=== PATIENT | female | born 1990 | race American Indian/Alaskan Native ===

== ENCOUNTER 2020-02-01 23:40 | Inpatient (IN) | payer MEDICAID ==
[2020-02-02] MEDS ORDERED: MINERAL OIL 30 ML ORAL LIQD PO PRN (01:02)
[2020-02-02] MEDS ORDERED: LIDOCAINE (2%) 20 MG/1 ML VIAL 20 ML MDV INFILTRATI ONE ×2 (01:02→03:21)
[2020-02-02] MEDS ORDERED: BUTORPHANOL 2 MG/1 ML INJ IV PRN ×2 (01:02→01:38)
[2020-02-02] MEDS ORDERED: fentaNYL 100 MCG/2 ML INJ IV PRN (01:02)
[2020-02-02] MEDS ORDERED: TERBUTALINE 1 MG/1 ML INJ SUB-Q PRN (01:02)
[2020-02-02] MEDS ORDERED: ePHEDrine SULFATE 50 MG/1 ML INJ IV PRN ×2 (01:02→01:21)
[2020-02-02] MEDS ORDERED: NALOXONE 2 MG/2 ML INJ IV PRN (01:21)
[2020-02-02 01:26] LABS: Hematocrit 29.1 % (30.3-42.9); Hemoglobin 9.3 gm/dl (10.1-14.3); Mean Corpuscular HGB Conc 32 % (30-34); Mean Corpuscular Volume 74 fl (79-97); Platelet Count 332 K/mm3 (140-440); Red Blood Count 3.91 M/mm3 (3.65-5.03); Red Cell Distribution Width 16.8 % (13.2-15.2)
--- NOTE | 2020-02-02 01:28 | Anesthesia Consultation ---
Anesthesia Consult and Med Hx Date of service: 02/02/20 - Airway Anesthetic Teeth Evaluation: Good ROM Head & Neck: Adequate Mental/Hyoid Distance: Adequate Mallampati Class: Class II Intubation Access Assessment: Probably Good - Pulmonary Exam CTA: Yes - Cardiac Exam Cardiac Exam: RRR - Pre-Operative Health Status ASA Pre-Surgery Classification: ASA2 Proposed Anesthetic Plan: Epidural - Pulmonary Hx Asthma: No - Cardiovascular System Hx Hypertension: No - Central Nervous System Hx Seizures: No Hx Psychiatric Problems: No - Endocrine Hx Renal Disease: No Hx Hypothyroidism: No Hx Hyperthyroidism: No - Hematic Hx Anemia: Yes Hx Sickle Cell Disease: No - Other Systems Hx Alcohol Use: No
[2020-02-02] MEDS ORDERED: fentaNYL-BUPIV 2 MCG/ML-0.125% 200 MCG/100 ML BAG EPIDURAL SCH (02:00)
[2020-02-02] MEDS ORDERED: OXYTOCIN DRIP 30 UNITS/500 ML BAG IV SCH ×3 (02:00→04:00)
[2020-02-02] MEDS ORDERED: LACTATED RINGERS 1,000 ML IV SCH (02:00)
--- NOTE | 2020-02-02 03:08 | Progress Note ---
Labor Epidural - Labor Epidural Start Time: 02:53 Stop Time: 03:07 Performed by:: APURVA KNIGHT Procedure: Patient is requesting epidural for labor pain. H&P, and labs reviewed. Procedure explained, questions answered, consent obtained. Patient in sitting position with blood pressure cuff and pulse ox on and working. Timeout performed immediately before start of procedure. Sterile betadine prep/drape. 3 mL 1% lidocaine skin wheal at L[3]-L[4]. 18-gauge Touhy epidural needle advanced to [id number] with saline at [7] cm. Epidural dexmedetomidine [30] mcg administered. Epidural catheter advanced to [12] cm, negative aspiration for blood and csf, negative test dose 3 ml 1.5% lidocaine with epinephrine. Sterile steri-strips and tegaderm applied, followed by tape reinforcement. Patient tolerated procedure well. Tommy SUAREZ
[2020-02-02] MEDS ORDERED: miSOPROStol 200 MCG TAB ONE (03:50)
[2020-02-02] MEDS ORDERED: ONDANSETRON 4 MG/2 ML INJ IV PRN (03:53)
[2020-02-02] MEDS ORDERED: ACETAMINOPHEN 325 MG TAB PO PRN (03:53)
[2020-02-02] MEDS ORDERED: MAGNESIUM HYDROXIDE (MOM) ORAL LIQD UDC PO PRN (03:53)
[2020-02-02] MEDS ORDERED: PROMETHAZINE 25 MG RECT SUPP PR PRN (03:53)
[2020-02-02] MEDS ORDERED: LANOLIN/ZINC/DIMETHICONE (LANSINOH) 7 GM TP PRN (03:53)
[2020-02-02] MEDS ORDERED: WITCH HAZEL/ GLYCERIN PAD TP PRN (03:53)
[2020-02-02] MEDS ORDERED: oxyCODONE /ACETAMINOPHEN 5-325MG TAB PO PRN (03:53)
[2020-02-02] MEDS ORDERED: PROMETHAZINE 25 MG TAB PO PRN (03:53)
[2020-02-02] MEDS ORDERED: diphenhydrAMINE 25 MG CAP PO PRN (03:53)
--- NOTE | 2020-02-02 03:59 | History and Physical Report ---
History of Present Illness Date of examination: 02/02/20 Date of admission: 02/01/20 23:54 Chief complaint: contractions History of present illness: 29-year-old G3, P2 at 39 weeks 5 days without outside facility care c/b Class II Obesity presenting with contractions. During triage assessment, had rupture membranes with clear fluid. Patient was admitted for induction/augmentation of labor. Denies PIH symptoms. Past History Past Medical History: no pertinent history Past Surgical History: no surgical history Family/Genetic History: none Social history: no significant social history - Obstetrical History : 3 Para: 2 Hx # Term Pregnancies: 2 Number of Living Children: 2 Medications and Allergies Allergies Allergy/AdvReac Type Severity Reaction Status Date / Time Penicillins Allergy Unknown Verified 02/01/20 23:53 Home Medications Medication Instructions Recorded Confirmed Last Taken Type No Known Home Medications [No 02/02/20 02/02/20 Unknown History Reported Home Medications] Active Meds: Active Medications Butorphanol Tartrate (Stadol) 2 mg IV Q2H PRN PRN Reason: Pain, Moderate(4-6) LABOR PAIN Last Admin: 02/02/20 01:44 Dose: 2 mg Documented by: Ephedrine Sulfate (Ephedrine Sulfate) 10 mg IV Q2M PRN PRN Reason: Hypotension Fentanyl (Sublimaze) 100 mcg IV Q2H PRN PRN Reason: Pain,Severe (7-10) LABOR PAIN Oxytocin/Sodium Chloride (Pitocin/Ns 30 Unit/500ml) 30 units in 500 mls @ 2 mls/hr IV TITR [place]; Protocol Lactated Ringer's (Lactated Ringers) 1,000 mls @ 125 mls/hr IV DIRECT [place] Oxytocin/Sodium Chloride (Pitocin/Ns 30 Unit/500ml) 30 units in 500 mls @ 40 mls/hr IV TITR [place]; Protocol Fentanyl/Bupivacaine/Sodium Chlor (Fentanyl-Bupiv 2 Mcg/Ml-0.125%) 200 mcg in 100 mls @ 12 mls/hr EPIDURAL TITR [place]; Protocol Mineral Oil (Mineral Oil) 30 ml PO QHS PRN PRN Reason: Constipation Naloxone HCl (Naloxone) 0.2 mg IV Q5M PRN PRN Reason: Respiratory sedation Promethazine HCl (Phenergan) 25 mg [place] Q6H PRN PRN Reason: Nausea And Vomiting Terbutaline Sulfate (Brethine) 0.25 mg SUB-Q ONCE PRN PRN Reason: Hyperstimulation/Hypertonicity Review of Systems All systems: negative (expect HPI) - Vital Signs Vital signs: Vital Signs Temp Pulse Resp BP Pulse Ox 98.6 F 112 H 24 137/81 99 02/02/20 00:16 02/02/20 00:16 02/02/20 00:16 02/02/20 00:16 02/02/20 00:16 Temp Pulse Resp BP Pulse Ox 98.5 F 110 H 18 124/70 100 02/02/20 01:25 02/02/20 03:46 02/02/20 01:25 02/02/20 03:46 02/02/20 03:41 - Physical Exam Abdomen: Positive: normal appearance, normal bowel sounds - Obstetrical FHR: category 1 Uterine Contraction Monitor Mode: External Cervical Dilatation: 3 Cervical Effacement Percentage: 50 station: -2 Uterine Contraction Frequency (min): 5 Uterine Contraction Pattern: Regular Uterine Tone Measurement Phase: Contraction Uterine Contraction Intensity: Strong/Firm Results Result Diagrams: 02/02/20 01:02 Abnormal lab results 02/02/20 Range/Units 01:02 WBC 13.5 H (4.5-11.0) K/mm3 Hgb 9.3 L (10.1-14.3) gm/dl Hct 29.1 L (30.3-42.9) % MCV 74 L (79-97) fl MCH 24 L (28-32) pg RDW 16.8 H (13.2-15.2) % All other labs normal. Assessment and Plan - Patient Problems (1) Active labor Current Visit: Yes Status: Acute Plan to address problem: --Augmentation as indicated --New OB labs as [facility] --Ancef for GBS unknown given PCN allergy --Desires future fertility
--- NOTE | 2020-02-02 04:03 | Procedure Note ---
OB Delivery Note - Delivery Date of Delivery: 02/02/20 Surgeon: VIV MO Estimated blood loss: 300cc - Vaginal Delivery presentation: vertex Delivery position: OA Intrapartum events: none Delivery induction: none Delivery monitor: external FHT, external uterine Route of delivery: Delivery placenta: spontaneous Delivery cord: 3 umbilical vessels Episiotomy: none Delivery laceration: none Anesthesia: epidural Delivery comments: Spontaneous vaginal delivery at 03:41 of liveborn male infant weighing 6 lb. 1 oz. over intact perineum with apgars of 8/9. Delivery of baby was atraumatic; no nuchal cord. Baby placed skin to skin with mom immediately after delivery. Spontaneous cry and respirations. Baby bulb suctioned and dried with warm blanke ts. 3 vessel cord double clamped and cut (delayed cord clamping). Spontaneous delivery of intact placenta and membranes by benjamin mechanism. EBL 300 cc. Pitocin to IV fluids after delivery of placenta. Cytotec 800 mcg rectally given for uterine atony. Fundus firmed with massage. No lacerations noted. Vaginal sweep negative. Sponge count correct. Mother and baby stable.
[2020-02-02] MEDS ORDERED: miSOPROStol 200 MCG TAB PR ONE (04:04)
[2020-02-02 05:34] LABS: Amphetamine Screen,Urine PRESUMPTIVE NEGATIVE; Benzodiazepines Screen,Urine PRESUMPTIVE NEGATIVE; Cannabinoid Screen,Urine PRESUMPTIVE NEGATIVE; Cocaine Screen,Urine PRESUMPTIVE NEGATIVE; Methadone Screen,Urine PRESUMPTIVE NEGATIVE; Opiate Screen,Urine PRESUMPTIVE NEGATIVE
[2020-02-02] MEDS: IBUPROFEN 600 MG TAB PO SCH ×2 (08:08→17:04)
--- NOTE | 2020-02-02 15:15 | Event Note ---
Date: 02/02/20 Day of delivery: Patient is doing well. No complaints. VSS. Small amount of lochia.
[2020-02-02 19:59] LABS: Hematocrit 26.1 % (30.3-42.9); Hemoglobin 8.2 gm/dl (10.1-14.3)
--- NOTE | 2020-02-02 20:18 | Post Anesthesia Evaluation ---
- Post Anesthesia Evaluation Patient Participated: Yes Airway Patent: Yes Stable Respiratory Function: Yes Nausea/Vomiting: No Temp > 96.8F: Yes Pain Manageable: Yes Adequeate Hydration: Yes Anesthesia Complications: No Block Receding Appropriately: Yes
[2020-02-03] MEDS: IBUPROFEN 600 MG TAB PO SCH ×4 (02:08→22:29)
--- NOTE | 2020-02-03 13:47 | Progress Note ---
Assessment and Plan A: day 1 S/P . Anemia. P: Iron supplementation. Anticipate discharge home tomorrow if patient continues to do well. Subjective - Subjective Date of service: 02/03/20 Principal diagnosis: day 1 S/P Patient reports: appetite normal, voiding normally, pain well controlled, flatus, ambulating normally, no dizzy ambulation, no nauseated [place]: doing well Objective - Vital Signs Latest vital signs: Vital Signs Temp Pulse Resp BP BP Pulse Ox 02/03/20 07:50 97.2 F L 83 18 120/77 100 02/03/20 02:08 20 02/03/20 01:32 97.9 F 96 H 18 104/63 100 02/02/20 16:03 97.4 F L 89 18 116/74 99 Intake and Output 02/02/20 02/03/20 02/03/20 23:59 07:59 15:59 Intake Total 640 240 Output Total 101 Balance 539 240 Intake: Oral 300 Intake, Free Water 340 240 Output: Urine 100 Void 100 Stool 1 Other: Total, Intake Amount 300 Total, Output Amount 100 # Voids Void 2 2 - Exam Cardiovascular: Present: Regular rate, No murmurs Lungs: Present: Clear to auscultation Abdomen: Present: normal appearance, soft. Absent: distention, tenderness, guarding, rigidity Uterus: Present: normal, firm, fundal height below umbilicus. Absent: bogginess, tenderness Extremities: Present: normal. Absent: tenderness, edema - Labs Labs: Abnormal lab results 02/02/20 Range/Units 19:22 Hgb 8.2 L (10.1-14.3) gm/dl Hct 26.1 L (30.3-42.9) %
[2020-02-03] MEDS: FERROUS SULFATE 325 MG TAB PO SCH ×2 (14:04→22:29)
[2020-02-04] MEDS: IBUPROFEN 600 MG TAB PO SCH (04:35)
--- NOTE | 2020-02-04 07:26 | Progress Note ---
Assessment and Plan A: day 2 S/P . Anemia. P: Discharge patient home today. Discussed with patient discharge instructions and warning signs. Advised patient to continue taking vitamins and iron supplements at home. Advised patient to avoid intercourse, lifting, housework, driving. Advised patient to follow up with her [facility] doctor in 6 weeks. Patient voiced understanding of all instructions. Subjective - Subjective Date of service: 02/04/20 Principal diagnosis: day 2 S/P Interval history: Patient requests discharge today. Patient reports: appetite normal, voiding normally, pain well controlled, flatus, ambulating normally, no dizzy ambulation, no nauseated : doing well Objective - Vital Signs Latest vital signs: Vital Signs Temp Pulse Resp BP BP Pulse Ox 02/04/20 00:33 98.2 F 88 2 L 128/76 100 02/03/20 16:00 96.8 F L 80 17 131/81 99 02/03/20 07:50 97.2 F L 83 18 120/77 100 Intake and Output 02/03/20 02/03/20 02/04/20 15:59 23:59 07:59 Intake Total 240 Balance 240 Intake: Oral 240 Other: Total, Intake Amount 240 # Voids Void 1 - Exam Cardiovascular: Present: Regular rate, No murmurs Lungs: Present: Clear to auscultation Abdomen: Present: normal appearance, soft. Absent: distention, tenderness, guarding, rigidity Uterus: Present: normal, firm, fundal height below umbilicus. Absent: bogginess, tenderness Extremities: Present: normal. Absent: tenderness, edema
--- NOTE | 2020-02-04 07:28 | Discharge Summary ---
Providers - Providers Date of Admission: 02/01/20 23:54 Date of discharge: 02/04/20 Attending physician: ELA HATFIELD JR, MD Primary care physician: ELA HATFIELD JR, MD Hospitalization Reason for admission: active labor Delivery: Episiotomy: none Laceration: none Other procedures: none complications: none Discharge diagnosis: IUP at term delivered baby: male Pertinent studies: Labs Hospital course: Normal hospital course. Condition at discharge: Good Disposition: DC-01 TO HOME OR SELFCARE - Discharge Diagnoses (1) Term delivered Status: Acute (2) Anemia Status: Acute Plan - Provider Discharge Summary Activity: routine, no sex for 6 weeks, no heavy lifting 4 weeks, no strenuous ex ercise Diet: routine Instructions: routine Additional instructions: Continue taking your vitamins and iron supplements at home. Follow up with your OB doctor in 4-6 weeks. Call your doctor immediately for: * Fever > 100.5 * Heavy vaginal bleeding ( >1 pad per hour) * Severe persistent headache * Shortness of breath * Reddened, hot, painful area to leg or breast - Follow up plan Follow up: PRIMARY CARE, [Referring] - 6 Weeks Forms: [facility] Discharge Summary, Discharge Signature Page
[2020-02-04 09:37] VITALS: BP 109/69
== END 2020-02-04 11:00 | disposition home or self-care (01) | DRG 775 ==
LOC: TRG 23:40 → LD 23:54 → OBSVTOIN 23:54 → APU 02-02 00:15 → TRG 02-02 00:15 → APU 02-02 02:04 → OB 02-02 05:43
PROVIDERS: ADMIT Obstetrics & Gynecology; ATTEND Obstetrics & Gynecology
PROC: 10E0XZZ Delivery of Products of Conception, External Approach (ICD-10-PCS; principal; 2020-02-02)
PROC: 3E0R3BZ Introduction of Anesthetic Agent into Spinal Canal, Percutaneous Approach (ICD-10-PCS; 2020-02-02)
PROC: 00HU33Z Insertion of Infusion Device into Spinal Canal, Percutaneous Approach (ICD-10-PCS; 2020-02-02)
PROC: 3E0P7VZ Introduction of Hormone into Female Reproductive, Via Natural or Artificial Opening (ICD-10-PCS; 2020-02-02)
DX: O99.214 Obesity complicating childbirth (principal); Z37.0 Single live birth; Z3A.39 39 weeks gestation of pregnancy; E66.9 Obesity, unspecified; Z88.0 Allergy status to penicillin; O90.81 Anemia of the puerperium; D64.9 Anemia, unspecified; Z20.828 Contact with and (suspected) exposure to other viral communicable diseases
CPT/HCPCS: 36415; 59025; 80307; 85014; 85018; 85027; 86592; 86706; 86762; 86850; 86900; 86901; 87806; G0378; A6250; J0595; J0690; J2590; U0003

== ENCOUNTER 2021-10-08 18:53 | Emergency (ER) | payer MEDICAID ==
[2021-10-09] MEDS ORDERED: dexAMETHasone 4 MG/ML VIAL PO ONE (08:02)
[2021-10-09] MEDS ORDERED: ACETAMINOPHEN W/CODEINE 300-30 MG TAB PO ONE (08:02)
--- NOTE | 2021-10-09 08:46 | Emergency Department Report ---
ED Neuro Deficit HPI - General Chief Complaint: Neuro Symptoms/Deficit Stated Complaint: BODY NUMBNESS Time Seen by Provider: 10/09/21 07:15 Source: patient Mode of arrival: Ambulatory Limitations: No Limitations - History of Present Illness Initial Comments: 31-year-old black female with a past medical history of hypertension presents to the emergency department for evaluation of 2-week history of intermittent numbness to bilateral feet and hands. She states that sometimes she has severe pain to her feet that just comes out of nowhere along with the numbness and tingling that resolves on its on. She states that she has pain in her bilateral hands mostly in the thumb joints more persistently. She states that pain in hand and thumb is worse with palpation and some movements. She denies fever. -: Gradual, week(s) (2) Location: left arm, right arm, left leg, right leg Presenting Symptoms: Absent: Weak/Paralyzed One Side, Sudden, Severe Headache, Blurred/Loss of Vision, Facial Droop/Numbness, Unable to Speak Clearly, Altered Mental Status History of same: Yes Place: home Severity: moderate Quality: numb, tingling On Anticoagulants: No Context: gradual onset Associated Symptoms: denies: confusion, chest pain, cough, diaphoresis, fever/chills, headaches, loss of appetite, malise, nausea/vomiting, vertigo, seizures, shortness of breath, syncope, weakness - Related Data Home Medications: Previous Rx's Medication Instructions Recorded Last Taken Type Gabapentin 100 mg PO Q8HR 30 Days #90 capsule 10/09/21 Unknown Rx methylPREDNISolone [Medrol 4MG 4 mg PO DAILY #1 pack 10/09/21 Unknown Rx DOSEPAK (21 tabs)] Allergies/Adverse Reactions: Allergies Allergy/AdvReac Type Severity Reaction Status Date / Time Penicillins Allergy Unknown Verified 02/01/20 23:53 ED Review of Systems ROS: Stated complaint: BODY NUMBNESS Other details as noted in HPI Comment: All other systems reviewed and negative Constitutional: denies: chills, fever Eyes: denies: vision change ENT: denies: ear pain, hearing loss, congestion Respiratory: denies: cough, shortness of breath, SOB with exertion, SOB at rest, stridor, wheezing Cardiovascular: denies: chest pain, palpitations, dyspnea on exertion, orthopnea Gastrointestinal: denies: abdominal pain, nausea, vomiting, diarrhea, hematemesis, melena, hematochezia Genitourinary: denies: urgency, dysuria Musculoskeletal: denies: back pain Skin: denies: rash, lesions Neurological: numbness, paresthesias. denies: headache, weakness, confusion, abnormal gait, vertigo Psychiatric: denies: anxiety, depression Hematological/Lymphatic: denies: easy bleeding, easy bruising ED Past Medical Hx - Past Medical History Hx Hypertension: No Hx Congestive Heart Failure: No Hx Diabetes: No Hx Deep Vein Thrombosis: No Hx Renal Disease: No Hx Sickle Cell Disease: No Hx Seizures: No Hx Asthma: No Hx COPD: No Hx HIV: No - Social History Smoking Status: Never Smoker - Medications Home Medications: Home Medications Medication Instructions Recorded Confirmed Last Taken Type Gabapentin 100 mg PO Q8HR 30 Days #90 capsule 10/09/21 Unknown Rx methylPREDNISolone [Medrol 4MG 4 mg PO DAILY #1 pack 10/09/21 Unknown Rx DOSEPAK (21 tabs)] ED Neuro Physical Exam - General Limitations: No Limitations General appearance: alert, in no apparent distress Suspected Stroke: No - Head Head exam: Present: atraumatic, normocephalic - Eye Eye exam: Present: normal appearance, PERRL. Absent: conjunctival injection, periorbital swelling, periorbital tenderness Pupils: Present: normal accommodation - ENT ENT exam: Present: normal exam, normal orophraynx - Neck Neck exam: Present: normal inspection, full ROM. Absent: tenderness, meningismus, lymphadenopathy, thyromegaly - Respiratory Respiratory exam: Present: normal lung sounds bilaterally. Absent: respiratory distress, wheezes, rales, chest wall tenderness - Cardiovascular Cardiovascular Exam: Present: tachycardia, normal heart sounds - GI/Abdominal GI/Abdominal exam: Present: soft, normal bowel sounds. Absent: distended, tenderness, guarding, rebound, rigid - Extremities Exam Extremities exam: Present: normal inspection, tenderness (Bilateral fingers and worse to left thumb), normal capillary refill. Absent: pedal edema, joint swelling, calf tenderness - Back Exam Back exam: Present: normal inspection. Absent: CVA tenderness (R), CVA tenderness (L), paraspinal tenderness, vertebral tenderness - Neurological Exam Neurological exam: Present: alert, oriented X3, CN II-XII intact, normal gait, reflexes normal. Absent: motor sensory deficit - NIHSS Assessment Interval: Baseline 1a. Level of Consciousness: alert/keenly responsive 1b. LOC Questions: answers both correctly 1c. LOC Commands: performs tasks correctly 2. Best Gaze: normal 3. Visual: no visual loss 4. Facial Palsy: normal symmetrical movement 5b. Motor Arm Right: no drift 5a. Motor Arm Left: no drift 6a. Motor Leg Left: no drift 6b. Motor Leg Right: no drift 7. Limb Ataxia: absent 8. Sensory: normal 9. Best Language: no aphasia 10. Dysarthria: normal 11. Extinction/Inattention: no abnormality Total Score: 0 Stroke Severity: No Stroke Symptoms - Psychiatric Psychiatric exam: Present: normal affect, normal mood - Skin Skin exam: Present: warm, dry, intact, normal color ED Course Vital Signs 10/08/21 19:19 Temperature 98.6 F Pulse Rate 114 H Respiratory 16 Rate Blood Pressure 148/114 [Left] O2 Sat by Pulse 96 Oximetry - Medical Decision Making 31-year-old black female with a past medical history of hypertension presents to the emergency department for evaluation of 2-week history of intermittent numbness to bilateral feet and hands. She states that sometimes she has severe pain to her feet that just comes out of nowhere along with the numbness and tingling that resolves on its on. She states that she has pain in her bilateral hands mostly in the thumb joints more persistently. She states that pain in hand and thumb is worse with palpation and some movements. She denies fever. Physical exam unremarkable and patient denies numbness and tingling at this time. Patient noted to have pain with palpation to all joints and hands that is significantly worse to left thumb joints. Patient will be treated with steroid pack and gabapentin for joint pain and intermittent numbness. She is advised to follow-up with her primary care provider and preferably a neurologist or hand crocheter for further evaluation to rule out other chronic problems. She is advised to return to the emergency department as needed. She verbalizes understanding of and agreement with plan of care. Critical care attestation.: If time is entered above; I have spent that time in minutes in the direct care of this critically ill patient, excluding procedure time. ED Disposition Clinical Impression: Paresthesia of foot, bilateral Joint pain Qualifiers: Joint pain location: hand Laterality: bilateral Qualified Code(s): M25.541 - Pain in joints of right hand; M25.542 - Pain in joints of left hand Disposition: 01 HOME / SELF CARE / HOMELESS Is pt being admited?: No Does the pt Need Aspirin: No Condition: Stable Instructions: Paresthesia, [id number], Peripheral Neuropathy, Joint Pain, [id number] Additional Instructions: Take medications as prescribed. Follow-up with neurologist or hand crocheter for further evaluation and management. Return to the emergency department as needed. Prescriptions: Gabapentin 100 mg PO Q8HR 30 Days #90 capsule methylPREDNISolone [Medrol 4MG DOSEPAK (21 tabs)] 4 mg PO DAILY #1 pack Referrals: TANNA MENJIVAR MD [Staff Physician] - 3-5 Days RUDY BAZAN MD [Referring] - 3-5 Days RAUL ASIF MD [Staff Physician] - 3-5 Days Forms: Work/School Release Form(ED) Time of Disposition: 08:53
[2021-10-09 09:07] VITALS: BP 135/74
== END 2021-10-09 09:07 | disposition home or self-care (01) ==
LOC: ED 18:53
DX: R20.2 Paresthesia of skin (principal); M25.50 Pain in unspecified joint
CPT/HCPCS: 99282; J1100